=== PATIENT | male | born 1965 | race Caucasian/White ===

== ENCOUNTER → 2021-06-16 09:08 | Outpatient (BNVA) | payer SELFPAY | PROVIDERS: PCP Nurse Practitioner; Visit Provider Dermatology | DX: Z01.89 Encounter for other specified special examinations (principal) ==

== ENCOUNTER 2021-07-14 12:54 | Outpatient (CLI) | payer BC, SELFPAY ==
[2021-07-14 13:15] VITALS: BP 131/79; PULSE 79; RESP 17; TEMP 36.5; O2SAT 94; BMI 39.1
[2021-07-14 13:49] VITALS: BP 131/80; PULSE 93; RESP 18; TEMP 36.8; O2SAT 95
[2021-07-14 14:50] VITALS: BP 138/96; PULSE 74; RESP 16; TEMP 36.6
== END 2021-07-14 12:55 | disposition home or self-care (01) ==
PROVIDERS: PCP Nurse Practitioner; Visit Provider Nurse Practitioner Family
DX: U07.1 COVID-19 (principal)
CPT/HCPCS: 96365

== ENCOUNTER 2021-10-01 12:52 | Emergency (ER) | payer OTHER, SELFPAY ==
[2021-10-01 13:21] VITALS: BP 153/87; PULSE 78; RESP 16; TEMP 36.8; O2SAT 96; BMI 39.1
[2021-10-01 13:35] LABS: Basophils # 0.1 10^3/uL (0.0-0.1); Basophils % 0.5 %; Eosinophils % 0.2 %; Hematocrit 44.7 % (42.0-52.0); Hemoglobin 14.3 g/dL (11.7-16.6); Lymphocytes # 1.8 10^3/uL (0.8-4.8); Lymphocytes % 13.8 %; Mean Corpuscular Hemoglobin 26.1 pg (28.0-34.0); Mean Corpuscular Volume 81.7 fl (80-94); Mean Platelet Volume 10.2 fL (7.4-10.4); Monocytes # 0.9 10^3/uL (0.2-0.9); Monocytes % 6.5 %; Neutrophils # 10.25 10^3/uL (1.8-7.7); Neutrophils % 78.5 %; Nucleated Red Blood Cells % 0 %; Platelet Count 280 10^3/cmm (130-400); Red Blood Count 5.47 10^6/uL (4.1-5.3); Red Cell Distribution Width 13.8 % (12.1-15.1)
[2021-10-01 13:49] LABS: Add Urine Microscopic? YES; Bilirubin Urine Neg (Negative); Blood Urine 2+ (Negative); Glucose Urine UA 2+ (Normal); Ketones Urine Negative (Negative); Leukocyte Esterase Urine Negative (Negative); Nitrate Urine Negative (Negative); Protein Urine Neg (Negative); Urine Appearance Cloudy (CLEAR); Urine Color Yellow (Yellow); Urobilinogen Urine Norm (Negative); pH Urine 7 (5-7)
[2021-10-01 13:50] LABS: Add Urine Culture? No; Amorphous Sediment Urine 1+ /hpf
[2021-10-01 13:56] LABS: Alanine Aminotransferase 30 U/L (0-41); Albumin Level 4.4 g/dL (3.5-5.2); Alkaline Phosphatase 62 IU/L (40-130); Anion Gap 17.3 (5-19); Aspartate Amino Transferase 14 U/L (0-40); Blood Urea Nitrogen 19 mg/dL (6-20); Carbon Dioxide 24 mmol/L (22-29); Chloride 100 mmol/L (98-107); Globulin 2.6 g/dL (1.3-4.6); Glomerular Filtration Rate 87.9 mL/min (90-130); Glucose 230 mg/dL (65-115); Lipase 30 U/L (13-60); Osmolality Calculated 294 mOsm/kg (285-295); Potassium 4.3 mmol/L (3.5-5.1); Sodium 137 mmol/L (136-145); Total Bilirubin 0.3 mg/dL (0.15-1.2)
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
[2021-10-01 15:16] VITALS: BP 164/93; PULSE 86; RESP 16; O2SAT 94
[2021-10-01] MEDS: HYDROcodone-acetaminophen 5-325 mg Tablet 1 TAB PO (16:23)
[2021-10-01 16:32] VITALS: BP 153/87; PULSE 76; RESP 17; O2SAT 94
--- NOTE | 2021-10-04 15:53 | DCPLANNER ---
cemetery manager had message to schedule a follow up appointment for patient with Dr. Jackson. cemetery manager emailed patients information to Kevin Amor and Alanna at the office of Dr. Jackson. Patients information will be printed and reviewed. Clinic will call patient with appointment information.
--- NOTE | 2021-10-07 07:25 | DCPLANNER ---
Patient had a follow up appointment scheduled for 10.06.[address] Jackson - patient did attend appointment.
== END 2021-10-01 16:25 | disposition home or self-care (01) ==
PROVIDERS: Emergency Provider Family Medicine; PCP Nurse Practitioner
DX: N20.0 Calculus of kidney (principal); Z79.84 Long term (current) use of oral hypoglycemic drugs; E11.9 Type 2 diabetes mellitus without complications; I10 Essential (primary) hypertension; E78.2 Mixed hyperlipidemia; Z87.891 Personal history of nicotine dependence
CPT/HCPCS: 36415; 74176; 80053; 81001; 83690; 85025; 99283

== ENCOUNTER 2021-10-06 09:39 | Outpatient (CLI) | payer OTHER, SELFPAY ==
--- NOTE | 2021-10-06 09:43 | XR_ITS ---
WS: [id number] XR KUB [id number] REASON FOR EXAM: stones FINDINGS: The small right intrarenal calculus identified on the CT examination of 10/01/2021 is not readily ident ifiable on the current study. No other urinary tract calculi are identified. No other significant abdominal or pelvic abnormality. XR/XR KUB [id number] IMPRESSION: No urinary tract calculi identified as above.
== END 2021-10-06 09:40 | disposition home or self-care (01) ==
LOC: RAD 09:42
PROVIDERS: PCP Nurse Practitioner; Visit Provider Urology
DX: N20.0 Calculus of kidney (principal); N20.1 Calculus of ureter; Z20.822 Contact with and (suspected) exposure to COVID-19
CPT/HCPCS: 74018; 81003; 87635

== ENCOUNTER 2021-10-12 06:48 | Day surgery (SDC) | payer OTHER, SELFPAY ==
[2021-10-09 14:59] VITALS: BMI 39.1
[2021-10-12] VITALS (8 sets, daily range): BP systolic 123–172; BP diastolic 68–85; PULSE 65–100; RESP 16–18; TEMP 36.2–36.6; O2SAT 93–97
--- NOTE | 2021-10-12 06:54 | XR_ITS ---
WS: [id number] Exam: XR KUB [id number] Date/Time of Exam: 10/12/2021 6:56 AM Reason For Exam: Preop left ESWL 6 mm calcification seen along the left paraspinal region at about the level of L5 is unchanged in pos ition and could be a ureteral stone. There is also a 3 mm triangular calcification superimposing the lower pole the right kidney which may represent a renal calculus. No bowel obstruction or free air. 2 mm left pelvic calcification is nonspecific. No sign of organ enlargement. Regional bony structures appear normal. XR/XR KUB [id number] IMPRESSION: 1. 6 mm left paraspinal calcification at about the level of L5 unchanged in loc ation and may represent a ureteral stone. 2. 3 mm calcification superimposes the lower pole the right kidney and may repr esent a renal calculus. 3. No acute abdominal process.
[2021-10-12] MEDS: sodium chloride 0.9% 1,000 ML 30 ML IV (07:34)
[2021-10-12 07:38] LABS: Glucose Point of Care 186 mg/dL (70-110)
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
--- NOTE | 2021-10-12 10:06 | W.PM.OPSUD ---
Surgery/Procedure H&P Update DATE OF PROCEDURE: October 12, 2021 DATE H&P PERFORMED: 10/06/21 H&P UPDATE INFORMATION: I have reviewed H&P completed within last 30 days, I have examined patient prior to procedure, No changes to prior documentation and H&P is in [facility] EMR on date indicated CHANGES TO PREVIOUS DOCUMENTATION: Preop KUB shows a stone roughly the same position in the left mid ureter. PREOP DIAGNOSIS: Refractory left ureteral calculus PLANNED PROCEDURE: Operation Date: 10/12/21 08:15 Proposed Procedures p ESWL N20.1 N20.9 [id number](Left) - Felipe Jackson MD s Poss Cystoscopy(Left) - Felipe Jackson MD s Poss Ureteral Stent Placement(Left) - Felipe Jackson MD
[2021-10-12] MEDS: levofloxacin-dextrose 5 % 500 MG/100 ML PREMIX 100 MG IV (10:10)
--- NOTE | 2021-10-12 11:22 | PM.OP ---
Operative Report Date of procedure: October 12, 2021 Pre-op Diagnosis: Refractory left ureteral calculus Post-op diagnosis: same Procedure Done: 1. Extracorporeal shockwave lithotripsy left ureteral calculus 2. Left ureteral stent placement (4.5 Citizen [place] by 26 cm double-pigtail without string) Implants: Left ureteral stent Pathology: none sent Surgeon: Manuel Volunteer Services Coordinator: Tala Anesthesia: General Estimated blood loss: None Urine output: Not measured Complications: None Findings: Stone easily identified and focused upon. A total of 3000 shocks administered to the stone with good change. Still had some visible stone fragments and for that reason a stent was left indwelling. Condition: stable Disposition: PACU Brief History: Wilmer is a 56-year-old white male with a history of recently diagnosed left mid ureteral stone with obstructive changes. Stone failed to progress with conservative management and ultimately he chose treatment with ESWL. Reviewed stent versus no stent in the decision-making process leading to that. Procedure: After routine preoperative evaluation examination and obtaining of informed consent he was taken to the operating suite on 10/12/2021 where general anesthesia was administered without difficulty after appropriate timeout was performed, SCDs confirmed to be functioning, preoperative antibiotics administered, beta-carole protocol confirmed. Position on the Dornier unit in supine position such that the stone was located at the focal point. The shock head was positioned anteriorly and the stone was easily focused upon. Shockwave therapy was initiated at a rate of 70 and later advanced to a rate of 90. Intensity was begun at 1 with advancement to 6. He was obliqued slightly to help bring the stone away from the spinal column. Focal point position changes based on real-time fluoroscopy. A total of 3000 shocks were administered with change. It was decided to leave a stent indwelling. He was then repositioned in dorsolithotomy position paying careful attention to avoiding pressure points. Prepped and draped in the usual sterile fashion. 21 Citizen [place] cystoscope with 30 degree lens was advanced into the bladder without difficulty. Bladder had a little bit of blood in it but no other significant changes. A guidewire was advanced up the left ureter. The wire was easily advanced beyond the location of the remaining stone fragments. A 4.5 [place] by 26 cm double-pigtail stent was advanced over the guidewire through the cystoscope into appropriate position as confirmed via fluoroscopy and cystoscopy. It was decided to not leave a string because of the residual fragments. Hopefully these will be small enough to pass and stent will be short-lived.
--- NOTE | 2021-10-12 14:19 | ANE.PACU2 ---
Inpatient post-anesthesia follow up: Airway intact: Yes Vital signs: Temperature 97.6 F Pulse Rate 80 Respiratory Rate 18 Blood Pressure 142/78 Pulse Oximetry 95 Oxygen Delivery Me thod Room Air Oxygen Flow Rate 6 Fraction of Inspir ed Oxygen Hydration adequate: Yes Nausea and vomiting: No Pain level: 2 Mental status: Baseline
== END 2021-10-12 12:47 | disposition home or self-care (01) ==
PROVIDERS: PCP Nurse Practitioner; Visit Provider Urology
PROC: (CPT 50590; principal; 2021-10-12 08:15)
PROC: 0TJB8ZZ Inspection of Bladder, Via Natural or Artificial Opening Endoscopic (ICD-10-PCS; CPT 52000; 2021-10-12 08:15)
PROC: (CPT 50605; 2021-10-12 08:15)
DX: N20.1 Calculus of ureter (principal); I10 Essential (primary) hypertension; K21.9 Gastro-esophageal reflux disease without esophagitis; E11.9 Type 2 diabetes mellitus without complications; E66.01 Morbid (severe) obesity due to excess calories; Z68.39 Body mass index [BMI] 39.0-39.9, adult; E78.2 Mixed hyperlipidemia
CPT/HCPCS: 50590; 52332; 36416; 74018; 82962; C2625; J0330; J1956; J2405; J2704; J2710; J3010; J3490; J7030

== ENCOUNTER 2021-10-20 09:52 | Outpatient (CLI) | payer OTHER, SELFPAY ==
--- NOTE | 2021-10-20 09:56 | XR_ITS ---
WS: [id number] KUB, AP view, 10/20/2021 Clinical Data: CALCULUS OF UPPER URINARY TRACT Comparison: KUB, 10/12/2021. Findings: No abnormal intraabdominal masses are seen. There is no dilatated small bowel or evidence of obstruct ion. There is a left ureteral stent and a calcification adjacent to the stent at the L5 transverse process level. There is a small calcification overlying the right kidney. XR/XR KUB [id number] Impression: 1. Left ureteral stent with probable fragmented left ureteral calculus. 2. Small right renal calculus.
== END 2021-10-20 09:53 | disposition home or self-care (01) ==
PROVIDERS: PCP Nurse Practitioner; Visit Provider Urology
DX: N20.9 Urinary calculus, unspecified (principal); Z96.0 Presence of urogenital implants
CPT/HCPCS: 74018; 81003

== ENCOUNTER → 2021-12-29 12:06 | Outpatient (BNVA) | payer OTHER, SELFPAY | PROVIDERS: PCP Nurse Practitioner; Visit Provider Nurse Practitioner | DX: E78.2 Mixed hyperlipidemia (principal); E11.65 Type 2 diabetes mellitus with hyperglycemia | CPT/HCPCS: 80061; 83036 ==

== ENCOUNTER → 2022-02-25 16:16 | Outpatient (BNVA) | payer OTHER, SELFPAY | PROVIDERS: PCP Nurse Practitioner; Visit Provider Nurse Practitioner | DX: I10 Essential (primary) hypertension (principal); E78.2 Mixed hyperlipidemia; E11.65 Type 2 diabetes mellitus with hyperglycemia; K44.9 Diaphragmatic hernia without obstruction or gangrene; M79.10 Myalgia, unspecified site | CPT/HCPCS: 81000 ==

== ENCOUNTER → 2022-07-06 11:46 | Outpatient (BNVA) | payer OTHER, SELFPAY | PROVIDERS: PCP Nurse Practitioner; Visit Provider Nurse Practitioner | DX: E11.65 Type 2 diabetes mellitus with hyperglycemia (principal); E04.9 Nontoxic goiter, unspecified; E78.2 Mixed hyperlipidemia; I10 Essential (primary) hypertension; K44.9 Diaphragmatic hernia without obstruction or gangrene | CPT/HCPCS: 80053; 80061; 81000; 83036; 83721; 84443 ==

== ENCOUNTER 2022-10-11 09:32 | Outpatient (CLI) | payer OTHER, SELFPAY ==
--- NOTE | 2022-10-11 06:15 | US_ITS ---
WS: [id number] THYROID ULTRASOUND HISTORY: E04.9 - Nontoxic goiter, unspecified COMPARISON: None available. Right lobe: 1.6 cm x 1.9 cm x 4.9 cm (w x ap x l). Volume: 8.0 cm3. Normal size thyroid. Mildly hyperechoic thyroid. No mass or nodule. No adenopathy. No increased vascu larity. Left lobe: 1.8 cm x 2.2 cm x 4.4 cm (w x ap x l). Volume: 9.4 cm3. Very slightly enlarged thyroid. There are small colloid cyst along the anterior mid gland measures 6 x 4 x 6 mm. No increased vascularity. No adenopathy. Isthmus: 0.5 cm. US/US thyroid [id number] IMPRESSION: 1. Benign colloid cyst LEFT thyroid. 2. No solid masses within the thyroid.
== END 2022-10-11 09:33 | disposition home or self-care (01) ==
PROVIDERS: PCP Nurse Practitioner; Visit Provider Nurse Practitioner
DX: E04.9 Nontoxic goiter, unspecified (principal)
CPT/HCPCS: 76536

== ENCOUNTER → 2023-01-19 09:29 | Outpatient (BNVA) | payer OTHER, SELFPAY | PROVIDERS: PCP Nurse Practitioner; Visit Provider Nurse Practitioner | DX: E11.65 Type 2 diabetes mellitus with hyperglycemia (principal); K44.9 Diaphragmatic hernia without obstruction or gangrene; I10 Essential (primary) hypertension; J98.01 Acute bronchospasm | CPT/HCPCS: 80053; 80061; 81000; 82043; 83036 ==

== ENCOUNTER 2023-04-01 13:50 | Outpatient (CLI) | payer OTHER, SELFPAY ==
--- NOTE | 2023-04-01 13:59 | XR_ITS ---
WS: [id number] XR shoulder LT min 2V* [id number] REASON FOR EXAM: M25.512 - Pain in left shoulder FINDINGS: No fracture or focal bone lesion. Significant narrowing of the acromioclavicular joint with subchondral sclerosis and osteophytosis. Minimal narrowing of the glenohumeral joint with mild subchondral sclerosis of the glenoid. Significant subchondral sclerosis and cystic change in the greater biceps tuberosity. This is associa cele with a small osteophyte from the lateral margin of the acromial process. No soft tissue abnormality. XR/XR shoulder LT min 2V* [id number] IMPRESSION: Significant osteoarthritis of the glenohumeral joint. Significant rotator cuff tendon arthropathy. Acromial osteophyte. These finding s make it likely the patient has significant rotator cuff tendinopathy.
== END 2023-04-01 13:51 | disposition home or self-care (01) ==
LOC: RAD 13:53
PROVIDERS: PCP Nurse Practitioner; Visit Provider Nurse Practitioner
DX: M19.012 Primary osteoarthritis, left shoulder (principal); M25.712 Osteophyte, left shoulder
CPT/HCPCS: 73030

== ENCOUNTER → 2023-04-13 10:33 | Outpatient (BNVA) | payer OTHER, SELFPAY | PROVIDERS: PCP Nurse Practitioner; Visit Provider Nurse Practitioner | DX: E11.65 Type 2 diabetes mellitus with hyperglycemia (principal); T14.90XA Injury, unspecified, initial encounter; W57.XXXA Bitten or stung by nonvenomous insect and other nonvenomous arthropods, initial encounter | CPT/HCPCS: 80053; 81000; 83036; 86618; 86666; 86757 ==

== ENCOUNTER → 2023-07-06 10:17 | Outpatient (BNVA) | payer OTHER, SELFPAY | PROVIDERS: PCP Nurse Practitioner; Visit Provider Nurse Practitioner | DX: E11.65 Type 2 diabetes mellitus with hyperglycemia (principal); E78.2 Mixed hyperlipidemia; I10 Essential (primary) hypertension | CPT/HCPCS: 80053; 80061; 81000; 83036 ==

== ENCOUNTER → 2023-12-21 16:22 | Outpatient (BNVA) | payer OTHER, SELFPAY | PROVIDERS: PCP Nurse Practitioner; Visit Provider Nurse Practitioner | DX: E11.9 Type 2 diabetes mellitus without complications (principal) | CPT/HCPCS: 80053; 80061; 81000; 82607; 83036 ==

== ENCOUNTER → 2024-03-13 10:38 | Outpatient (BNVA) | payer OTHER, SELFPAY | PROVIDERS: PCP Nurse Practitioner; Visit Provider Nurse Practitioner | DX: Z12.5 Encounter for screening for malignant neoplasm of prostate (principal); E11.9 Type 2 diabetes mellitus without complications | CPT/HCPCS: 80053; 80061; 83036; G0103 ==

== ENCOUNTER → 2024-08-15 08:40 | Outpatient (BNVA) | payer OTHER, SELFPAY | PROVIDERS: PCP Nurse Practitioner; Visit Provider Nurse Practitioner | DX: E11.9 Type 2 diabetes mellitus without complications (principal); E11.65 Type 2 diabetes mellitus with hyperglycemia | CPT/HCPCS: 80053; 80061; 82043; 82607; 83036 ==

== ENCOUNTER → 2024-08-28 08:32 | Outpatient (BNVA) | payer OTHER, SELFPAY | PROVIDERS: PCP Nurse Practitioner; Visit Provider Nurse Practitioner | DX: E11.65 Type 2 diabetes mellitus with hyperglycemia (principal) | CPT/HCPCS: 81000 ==

== ENCOUNTER → 2025-02-05 09:11 | Outpatient (BNVA) | payer MEDICAID, SELFPAY | PROVIDERS: PCP Nurse Practitioner; Visit Provider Nurse Practitioner | DX: E11.65 Type 2 diabetes mellitus with hyperglycemia (principal); E55.9 Vitamin D deficiency, unspecified; R53.83 Other fatigue | CPT/HCPCS: 80053; 80061; 81000; 82043; 82306; 83036; 84403 ==

== ENCOUNTER → 2025-07-26 09:00 | Outpatient (BNVA) | payer OTHER, BC, MEDICAID, SELFPAY | PROVIDERS: PCP Nurse Practitioner; Visit Provider Nurse Practitioner | DX: E11.9 Type 2 diabetes mellitus without complications (principal); E11.65 Type 2 diabetes mellitus with hyperglycemia | CPT/HCPCS: 80053; 80061; 83036; 85025 ==

== ENCOUNTER → 2025-08-07 12:05 | Outpatient (BNVA) | payer BC, MEDICAID, SELFPAY | PROVIDERS: PCP Nurse Practitioner; Visit Provider Nurse Practitioner | DX: E11.65 Type 2 diabetes mellitus with hyperglycemia (principal) | CPT/HCPCS: 81000 ==